=== PATIENT | male | born 1970 | race Caucasian/White ===

== ENCOUNTER 2018-01-01 04:01 | Emergency (ER) | payer MEDICAID ==
[~2018-01-01] VITALS: Ht 177.8 cm; Wt 99.8 kg
--- NOTE | 2018-01-01 04:42 | NUR ---
SEEN AND EXAMINED BY DR. WOLFE
--- NOTE | 2018-01-01 04:56 | NUR ---
PT IS AOX3 , C/O NUMBNESS ON HIS MANDIBLE DUE TO POSS. BUG BITES. NO REDNESS DENIES PAIN. NO SWOLLEN OF THE NECK, AFEBRILE. PT STATED THAT HE WAS SLEEPING AND LEANING ON THE TABLE AND FELT STING ON HIS MANDIBLE AREA.THEN FALL BACK TO SLEEP AGAIN LAST SATURDAY. " I THOUGHT IT WILL GO RIGHT AWAY BUT I CAN STILL FEEL IT AND FELT LIKE SOME EGGS ARE GROWING AROUND IT". VSS, AFEBRILE.
--- NOTE | 2018-01-01 05:08 | NUR ---
PT PICKED UP BY RADIOLOGY FOR CT MANDIBLE.
--- NOTE | 2018-01-01 05:11 | NUR ---
CAME BACK TO BED # 13
[2018-01-01 05:48] VITALS: BP 125/64
--- NOTE | 2018-01-01 05:50 | NUR ---
Patient discharged to home in stable condition. Written and verbal after care instructions given. Patient verbalizes understanding of instruction. VSS. Ambulatory with a steady gait.
== END 2018-01-01 05:49 | disposition home or self-care (01) ==
LOC: ER 04:01
DX: K04.7 Periapical abscess without sinus (principal); F17.200 Nicotine dependence, unspecified, uncomplicated; Z59.0 Homelessness
CPT/HCPCS: 70486-TC; A4606; Z7610